=== PATIENT | male | born 1935 ===

== ENCOUNTER 2017-06-20 16:27 | Inpatient (IN) | payer MEDICARE, BC, OTHER ==
[2017-06-20] MEDS ORDERED: Morphine INJ* 2 MG/ML 1 ML SYRINGE IV PRN (18:38)
[2017-06-20] MEDS ORDERED: Acetaminophen TAB* 325 MG PO PRN (18:38)
[2017-06-20] MEDS ORDERED: NS 0.9% 1000 ML* 1,000 ML IV SCH (19:45)
[2017-06-20] MEDS ORDERED: Ondansetron INJ* 2 MG/ML VIAL IV PRN (19:50)
[2017-06-20] MEDS: metroNIDAZOLE IV 500 MG/100ML* 500 MG/100 ML BAG IVPB SCH (21:29)
[2017-06-20] MEDS: Terazosin CAP* 5 MG PO SCH (21:32)
[2017-06-20] MEDS: Atorvastatin* 10 MG TAB PO SCH (21:32)
[2017-06-20] MEDS: Atenolol TAB* 25 MG PO SCH (21:32)
[2017-06-20] MEDS: PTO: Brimonidine/Timolol 0.2%/0.5% OPTH(NF) SOL 5 ML LEFT EYE SCH (21:33)
[2017-06-20] MEDS: PTO: Brinzolamide 1% OPHTH SOL(NF) BTL LEFT EYE SCH (21:33)
[2017-06-20] MEDS: Latanoprost 0.005%* 2.5 ml BTL BOTH EYES SCH (21:33)
[2017-06-20] MEDS ORDERED: Heparin VIAL(*) 5000 UNITS/ML VIAL (FIVE THOUSAND) SUBCUT SCH (22:00)
--- NOTE | 2017-06-20 22:22 | HP ---
CC: Dr. Carrillo * [facility] MEDICINE HISTORY AND PHYSICAL: DATE OF ADMISSION: 06/20/17 PRIMARY CARE PHYSICIAN: Dr. Carrillo. ATTENDING PHYSICIAN: Dr. Miguel Cullen * (dictation provided by Cheryl Nelson NP). CHIEF COMPLAINT: Sigmoid diverticulosis with abscess. HISTORY OF PRESENT ILLNESS: Mr. Le is an 82-year-old male with a past medical history of a lower GI bleed related to a bleeding polyp in 2005 as well as glaucoma, hypertension, and dyslipidemia, who presents to the hospital today with concern for a newly discovered 7.6-cm pelvic abscess along the sigmoid colon. Mr. Le states he was feeling well up until early last week, when he developed dark stool. He had no nausea, no vomiting, no abdominal pain. He was tolerating oral intake well. By yesterday, he developed diarrhea and had several loose stools early in the day. For that reason his convinced him to be evaluated at [facility]. He was admitted and ultimately went on for a CT scan first without and then with contrast of the abdomen and pelvis, which confirmed that there was a 7.6-cm abscess along the sigmoid colon associated with severe diverticulosis. The patient was anemic with hemoglobin 8.9, hematocrit 27, I do not have a prior baseline. He also has an elevated BUN of 33 and a creatinine of 2.1, although I do not have a baseline. Based on the discovery of this abscess, he was sent over to [facility] for surgical consultation and possible Interventional Radiology procedure for abscess drainage. PAST MEDICAL HISTORY: 1. History of GI bleed, 2005, with a bleeding polyp removed by Dr. Gr. 2. History of dyslipidemia. 3. Hypertension. 4. Benign prostatic hypertrophy. 5. Glaucoma. 6. Tonsillectomy. 7. Right inguinal hernia repair. MEDICATIONS: 1. Aspirin 81 mg p.o. daily. 2. Atenolol/chlorthalidone 50/25 one tab p.o. b.i.d. 3. Cinnamon 1 tab p.o. b.i.d. 4. Batson-3 fatty acid 1000 mg p.o. t.i.d. 5. Brimonidine/timolol 1 drop left eye b.i.d. 6. Brinzolamide 1 drop left eye b.i.d., that is 1%. 7. Finasteride 5 mg p.o. daily. 8. Latanoprost 0.005% one drop both eyes at bedtime. 9. Multivitamin and mineral 1 tab p.o. daily. 10. Simvastatin 20 mg p.o. daily. 11. Terazosin 5 mg p.o. b.i.d. 12. Timolol 0.5% 1 drop right eye daily. ALLERGIES: To AMLODIPINE, LISINOPRIL, and PEANUT. FAMILY HISTORY: The patient states that his mom at age 93 from old age, father at 32 in [place] War [place]. SOCIAL HISTORY: The patient is a former smoker, quit in 2001, denies any alcohol use. He lives alone. States that his son, Jonnathan, and his daughter-in- law, Jessica, would be the healthcare proxies. REVIEW OF SYSTEMS: A 14-point review of systems was completed with Mr. Le , and all those not mentioned above were negative. PHYSICAL EXAMINATION GENERAL: Mr. Le was sitting up in the bed. He is in no acute distress. VITAL SIGNS: Temperature 98.5, pulse rate 48, respiratory rate 14, O2 saturation 100% on room air, blood pressure 131/49. LUNGS: Clear to auscultation bilaterally with no accessory muscle use and good aeration. HEART: S1, S2. No murmur, rub, or gallop, and regular. ABDOMEN: Soft, nontender with bowel sounds positive x4. EXTREMITIES: No cyanosis or edema. NEURO: He is alert. He is oriented x3. He moves all extremities equally. There is no facial asymmetry or focal weakness. Extraocular movements are intact. SKIN: Intact. DIAGNOSTIC STUDIES/LAB DATA: Sodium 135, potassium 5.0, chloride 104, serum bicarbonate 23, BUN 33, creatinine 2.1, glucode 96. WBC 6.3, hemoglobin 8.9, hematocrit 27, platelet count 191. The CT abdomen and pelvis shows severe diverticulosis of the sigmoid colon with 7.6- cm abscess. ASSESSMENT AND PLAN: Mr. Le is an 82-year-old male with a past medical history of bleeding polyp, which was removed by Dr. Simón kaplan in 2005 as well as glaucoma, hypertension, dyslipidemia, who presents to the hospital today with concern for dark, tarry stools at home and now transferred from [place] for a finding of sigmoid abscess. Our plans for admission to the hospital for the followin. Sigmoid abscess: I have reviewed the case with Dr. Wolff over the phone and someone from his team will be consulting on the patient tomorrow. In the meantime, the patient will be on Cipro and Flagyl for antibiotic coverage. We will likely need to speak with Interventional Radiology tomorrow regarding possible procedure for drainage. 2. Hypertension: Plan to continue atenolol, but we will hold the chlorthalidone during acute illness and in the setting of a possible acute kidney injury. 3. Lower gastrointestinal bleed: The patient appears quite stable, his hemoglobin is 8.9, hematocrit is 27, I do not have a prior one on file to compare with. He has only had minimal dark stool, plan to recheck all his labs again in the morning. 4. Question of kidney disease: The patient has elevated BUN and creatinine. Again, I do not have a baseline, but we will hydrate and recheck labs in the morning. 5. Glaucoma: Continue home medications. 6. Dyslipidemia: Continue simvastatin. 7. Benign prostatic hypertrophy: Continue home medications. 8. DVT prophylaxis: With SCDs only in this patient with concern for gastrointestinal bleeding. 9. Code status: Full code. TIME SPENT: Approximately 60 minutes was spent on the admission of this patient , more than half the time was spent with the patient at bedside, reviewing the events leading up to this hospitalization, performing the physical examination, and reviewing my plan of care. CHERYL NELSON NP [id number]/[facility] #: [id number] BERNARDA
[2017-06-20] MEDS: Ciprofloxacin 400MG IVPREMIX(* 400 MG/200 ML BAG IVPB SCH (22:53)
[2017-06-21] MEDS: metroNIDAZOLE IV 500 MG/100ML* 500 MG/100 ML BAG IVPB SCH ×3 (04:41→23:10)
[2017-06-21 05:25] LABS: Hematocrit 25 % (42-52); Hemoglobin 8.1 g/dl (14.0-18.0); Mean Corpuscular HGB Conc 33 g/dl (31-36); Mean Corpuscular Hemoglobin 28 pg (27-31); Mean Corpuscular Volume 84 fL (80-94); Mean Platelet Volume 7 um3 (7.4-10.4); Red Blood Count 2.95 10^6/ul (4.0-5.4); Red Cell Distribution Width 15 % (10.5-15)
[2017-06-21 05:44] LABS: BUN/Creatinine Ratio 14.2 (8-20); Calcium 8.7 mg/dL (8.6-10.3); EGFR African American 55.8 (>60); EGFR Non-African American 43.4 (>60); Potassium 4.1 mmol/L (3.5-5.0)
[2017-06-21] MEDS: Multivitamins/Minerals TAB PO SCH (08:08)
[2017-06-21] MEDS: Atenolol TAB* 25 MG PO SCH ×2 (08:08→21:43)
[2017-06-21] MEDS: Finasteride TAB* 5 MG PO SCH (08:08)
[2017-06-21] MEDS: Terazosin CAP* 5 MG PO SCH ×2 (08:08→21:43)
[2017-06-21] MEDS: PTO: Brinzolamide 1% OPHTH SOL(NF) BTL LEFT EYE SCH ×2 (08:09→21:46)
[2017-06-21] MEDS: Timolol 0.5% OPTH.SOL* BTL RIGHT EYE SCH (08:09)
[2017-06-21] MEDS: PTO: Brimonidine/Timolol 0.2%/0.5% OPTH(NF) SOL 5 ML LEFT EYE SCH ×2 (08:09→21:46)
[2017-06-21] MEDS ORDERED: Atenolol TAB* 25 MG PO SCH (09:00)
[2017-06-21] MEDS: Ciprofloxacin 400MG IVPREMIX(* 400 MG/200 ML BAG IVPB SCH ×2 (09:53→21:47)
[2017-06-21] MEDS: NS 0.9% 1000 ML* 1,000 ML IV SCH ×2 (09:55→18:09)
--- NOTE | 2017-06-21 11:25 | PN ---
Subjective Date of Service: 06/21/17 Interval History: No pain. He states he had 3 small BM's 06/19, none on 06/20, and 2 small BM's so far today. They are liquid and black. He did his usual 50 pushups at 45 degrees this AM without any difficulty. No dizziness or SOB. Objective Active Medications: Acetaminophen (Tylenol Tab*) 650 mg PO Q4H PRN PRN Reason: FEVER/PAIN Atenolol (Tenormin Tab*) 25 mg PO BID [facility] Last Admin: 06/21/17 08:08 Dose: 25 mg Atorvastatin Calcium (Lipitor*) 10 mg PO BEDTIME [facility] Last Admin: 06/20/17 21:32 Dose: 10 mg Brimonidine/Timolol (Combigan Ophth (Nf)) 1 drop LEFT EYE BID [facility] Last Admin: 06/21/17 08:09 Dose: 1 drop Brinzolamide (Azopt 1% Ophth Jacqueline(Nf)) 1 drop LEFT EYE BID [facility] Last Admin: 06/21/17 08:09 Dose: 1 drop Finasteride (Proscar Tab*) 5 mg PO DAILY [facility] Last Admin: 06/21/17 08:08 Dose: 5 mg Ciprofloxacin/Dextrose (Cipro 400 Mg Ivpremix(*)) 400 mg in 200 mls @ 200 mls/ hr IVPB Q12H [facility] Last Admin: 06/21/17 09:53 Dose: 200 mls/hr Metronidazole/Sodium Chloride (Flagyl 500 Mg Ivpb*) 500 mg in 100 mls @ 100 mls /hr IVPB Q8H [facility] Last Admin: 06/21/17 04:41 Dose: 100 mls/hr Sodium Chloride (Ns 0.9% 1000 Ml*) 1,000 mls @ 40 mls/hr IV PER RATE [facility] Last Admin: 06/21/17 09:55 Dose: 40 mls/hr Latanoprost (Xalatan 0.005%*) 1 drop BOTH EYES BEDTIME [facility] Last Admin: 06/20/17 21:33 Dose: 1 drop Multivitamins/Minerals (Theragran/Minerals Tab*) 1 tab PO DAILY [facility] Last Admin: 06/21/17 08:08 Dose: 1 tab Ondansetron HCl (Zofran Inj*) 4 mg IV Q6H PRN PRN Reason: NAUSEA Terazosin HCl (Hytrin Cap*) 5 mg PO BID [facility] Last Admin: 06/21/17 08:08 Dose: 5 mg Timolol Maleate (Timoptic 0.5% Opth*) 1 drop RIGHT EYE DAILY [facility] Last Admin: 06/21/17 08:09 Dose: 1 drop Vital Signs 06/20/17 06/20/17 06/20/17 18:29 19:49 23:35 Temperature 98.5 F 98.0 F 97.7 F Pulse Rate 48 50 55 Respiratory 14 18 16 Rate Blood Pressure 131/49 121/47 107/48 (mmHg) O2 Sat by Pulse 100 100 99 Oximetry 06/21/17 06/21/17 06/21/17 03:46 07:32 07:34 Temperature 97.6 F 97.8 F Pulse Rate 57 52 Respiratory 16 18 18 Rate Blood Pressure 117/52 136/56 (mmHg) O2 Sat by Pulse 99 100 Oximetry Oxygen Devices in Use Now: None Appearance: Alert, sitting up in bed. In good spirits. Looks comfortable. Neck: NL Appearance and Movements; NL JVP, No Thyroid Enlargement, Masses Respiratory: Symmetrical Chest Expansion and Respiratory Effort, Clear to Auscultation, Clear to Percussion Abdominal: NL Sounds; No Tenderness; No Distention, No Hepatosplenomegaly, - Extremities: No Edema, No Clubbing, Cyanosis, - Skin: No Rash or Ulcers, No Nodules or Sclerosis, - Neurological: Alert and Oriented x 3, NL Sensation Result Diagrams: 06/21/17 05:12 06/21/17 05:12 Assess/Plan/Problems-Billing Assessment: - Patient Problems (1) Abscess of sigmoid colon Current Visit: Yes Status: Acute Code(s): K63.0 - ABSCESS OF INTESTINE SNOMED Code(s): 793597585 Comment: No hx suggestive of recent diverticulitis. He had a colonoscopy in 04/2016. CT guided drainage requested. Dr. Bustos will review data and get back to me. (2) HTN (hypertension) Current Visit: Yes Status: Acute Code(s): I10 - ESSENTIAL (PRIMARY) HYPERTENSION SNOMED Code(s): 27217156 Comment: Continue terazosin. (3) Hyperlipidemia Current Visit: Yes Status: Acute Code(s): E78.5 - HYPERLIPIDEMIA, UNSPECIFIED SNOMED Code(s): 56191193 Comment: Sub atorvastatin for simvastatin. (4) Glaucoma Current Visit: Yes Status: Acute Code(s): H40.9 - UNSPECIFIED GLAUCOMA SNOMED Code(s): 21786615 Comment: His 3 home eye drops are continued. (5) BPH (benign prostatic hyperplasia) Current Visit: Yes Status: Acute Code(s): N40.0 - BENIGN PROSTATIC HYPERPLASIA WITHOUT LOWER URINRY TRACT SYMP SNOMED Code(s): 882912582 Comment: Continue finasteride, terazosin.
[2017-06-21] MEDS: Atorvastatin* 10 MG TAB PO SCH (21:43)
[2017-06-21] MEDS: Latanoprost 0.005%* 2.5 ml BTL BOTH EYES SCH (21:47)
[2017-06-22 05:35] LABS: Hematocrit 23 % (42-52); Hemoglobin 7.7 g/dl (14.0-18.0); Mean Corpuscular HGB Conc 33 g/dl (31-36); Mean Corpuscular Hemoglobin 28 pg (27-31); Mean Corpuscular Volume 84 fL (80-94); Mean Platelet Volume 7 um3 (7.4-10.4); Red Blood Count 2.78 10^6/ul (4.0-5.4); Red Cell Distribution Width 15 % (10.5-15); White Blood Count 3.6 10^3/ul (3.5-10.8)
[2017-06-22] MEDS: metroNIDAZOLE IV 500 MG/100ML* 500 MG/100 ML BAG IVPB SCH ×3 (05:39→21:27)
[2017-06-22 06:02] LABS: Ferritin 69.6 ng/mL (24-336)
[2017-06-22] MEDS ORDERED: Iodixanol* (CONTRAST) 320 MG/ML 100 ML SDV IV ONE (10:29)
--- NOTE | 2017-06-22 11:06 | RAD ---
INDICATION: Sigmoid abscess. COMPARISON: Comparison is made with a prior outside CT of the abdomen and pelvis from June 20, 2017. TECHNIQUE: Contiguous axial sections were obtained through the pelvis with intravenous and rectal contrast. The exam was performed following intravenous injection of 100 ml of Visipaque 320. Images were reconstructed in the coronal and sagittal planes. FINDINGS: The visualized portion of the small bowel and colon appear nondistended. There is moderate sigmoid diverticulosis. There is focal wall thickening present in the midportion of the sigmoid colon. There is an air-fluid collection present along the anterior margin of the sigmoid colon measuring 4.0 x 2.1 cm in size. There is adjacent stranding in the surrounding mesenteric fat. These findings are most consistent with sigmoid diverticulitis with a peridiverticular abscess. No free intraperitoneal air or fluid is seen. No significant enlarged pelvic or inguinal lymph nodes are seen. There is cortical thickening and increased lucency present throughout the left hemipelvis suggestive of Paget's disease less likely metastatic disease. Recommend clinical correlation. IMPRESSION: 1. SIGMOID DIVERTICULITIS WITH A PERIDIVERTICULAR ABSCESSES DESCRIBED. 2. 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 RECOMMEND CLINICAL CORRELATION.
[2017-06-22] MEDS: PTO: Brinzolamide 1% OPHTH SOL(NF) BTL LEFT EYE SCH ×2 (11:31→21:25)
[2017-06-22] MEDS: Timolol 0.5% OPTH.SOL* BTL RIGHT EYE SCH (11:32)
[2017-06-22] MEDS: Ciprofloxacin 400MG IVPREMIX(* 400 MG/200 ML BAG IVPB SCH ×2 (11:35→22:35)
[2017-06-22] MEDS: PTO: Brimonidine/Timolol 0.2%/0.5% OPTH(NF) SOL 5 ML LEFT EYE SCH ×2 (11:36→21:24)
[2017-06-22] MEDS: Multivitamins/Minerals TAB PO SCH (11:39)
[2017-06-22] MEDS: Atenolol TAB* 25 MG PO SCH ×2 (11:39→21:29)
[2017-06-22] MEDS: Finasteride TAB* 5 MG PO SCH (11:39)
[2017-06-22] MEDS: Terazosin CAP* 5 MG PO SCH ×2 (11:39→21:29)
--- NOTE | 2017-06-22 15:05 | PN ---
Subjective Date of Service: 06/22/17 Interval History: Small amounts of black stool every day or so. No pain, no F/C. Good appetite. No new c/o. Objective Active Medications: Acetaminophen (Tylenol Tab*) 650 mg PO Q4H PRN PRN Reason: FEVER/PAIN Atenolol (Tenormin Tab*) 25 mg PO BID [facility] Last Admin: 06/22/17 11:39 Dose: 25 mg Atorvastatin Calcium (Lipitor*) 10 mg PO BEDTIME [facility] Last Admin: 06/21/17 21:43 Dose: 10 mg Brimonidine/Timolol (Combigan Ophth (Nf)) 1 drop LEFT EYE BID [facility] Last Admin: 06/22/17 11:36 Dose: 1 drop Brinzolamide (Azopt 1% Ophth Jacqueline(Nf)) 1 drop LEFT EYE BID [facility] Last Admin: 06/22/17 11:31 Dose: 1 drop Finasteride (Proscar Tab*) 5 mg PO DAILY [facility] Last Admin: 06/22/17 11:39 Dose: 5 mg Ciprofloxacin/Dextrose (Cipro 400 Mg Ivpremix(*)) 400 mg in 200 mls @ 200 mls/ hr IVPB Q12H [facility] Last Admin: 06/22/17 11:35 Dose: 200 mls/hr Metronidazole/Sodium Chloride (Flagyl 500 Mg Ivpb*) 500 mg in 100 mls @ 100 mls /hr IVPB Q8H [facility] Last Admin: 06/22/17 13:40 Dose: 100 mls/hr Sodium Chloride (Ns 0.9% 1000 Ml*) 1,000 mls @ 40 mls/hr IV PER RATE [facility] Last Admin: 06/21/17 18:09 Dose: 40 mls/hr Latanoprost (Xalatan 0.005%*) 1 drop BOTH EYES BEDTIME [facility] Last Admin: 06/21/17 21:47 Dose: 1 drop Multivitamins/Minerals (Theragran/Minerals Tab*) 1 tab PO DAILY [facility] Last Admin: 06/22/17 11:39 Dose: 1 tab Ondansetron HCl (Zofran Inj*) 4 mg IV Q6H PRN PRN Reason: NAUSEA Terazosin HCl (Hytrin Cap*) 5 mg PO BID [facility] Last Admin: 06/22/17 11:39 Dose: 5 mg Timolol Maleate (Timoptic 0.5% Opth*) 1 drop RIGHT EYE DAILY [facility] Last Admin: 06/22/17 11:32 Dose: 1 drop Vital Signs 06/21/17 06/21/17 06/21/17 15:57 20:00 20:13 Temperature 98.0 F 98.0 F Pulse Rate 57 62 Respiratory 22 20 23 Rate Blood Pressure 131/58 129/64 (mmHg) O2 Sat by Pulse 99 99 Oximetry 06/21/17 06/22/17 06/22/17 23:34 03:36 08:00 Temperature 97.4 F 97.5 F Pulse Rate 57 60 Respiratory 16 16 16 Rate Blood Pressure 119/59 124/64 (mmHg) O2 Sat by Pulse 99 99 Oximetry 06/22/17 11:16 Temperature 97.5 F Pulse Rate 51 Respiratory 20 Rate Blood Pressure 123/56 (mmHg) O2 Sat by Pulse 100 Oximetry Oxygen Devices in Use Now: None Appearance: Alert, sitting on the edge of his bed. In good spirits. Looks comfortable. Eyes: No Scleral Icterus Ears/Nose/Mouth/Throat: Clear Oropharnyx, Mucous Membranes Moist Neck: NL Appearance and Movements; NL JVP, No Thyroid Enlargement, Masses Cardiovascular: - Abdominal: NL Sounds; No Tenderness; No Distention, No Hepatosplenomegaly, - Extremities: No Edema, No Clubbing, Cyanosis, - Skin: No Rash or Ulcers, No Nodules or Sclerosis, - Neurological: Alert and Oriented x 3, NL Sensation Result Diagrams: 06/22/17 05:07 06/21/17 05:12 Assess/Plan/Problems-Billing Assessment: - Patient Problems (1) Abscess of sigmoid colon Current Visit: Yes Status: Acute Code(s): K63.0 - ABSCESS OF INTESTINE SNOMED Code(s): 298936607 Comment: No hx suggestive of recent diverticulitis. He had a colonoscopy in 04/2016. CT guided drainage requested. Discussed with Dr. Redding- no drainable abaces, has phlegmon in the wall of the colon. I spoke briefly with Dr. Alford also. I plan on giving 1 more day of IV antibiotics then d/c on oral antibiotic with fup CT w/rectal contrast in 2 weeks. Transfuse 1 U PRBC 06/22, BMP and CBC 06/23. (2) HTN (hypertension) Current Visit: Yes Status: Acute Code(s): I10 - ESSENTIAL (PRIMARY) HYPERTENSION SNOMED Code(s): 40075821 Comment: Continue terazosin. (3) Hyperlipidemia Current Visit: Yes Status: Acute Code(s): E78.5 - HYPERLIPIDEMIA, UNSPECIFIED SNOMED Code(s): 00457302 Comment: Sub atorvastatin for simvastatin. (4) Glaucoma Current Visit: Yes Status: Acute Code(s): H40.9 - UNSPECIFIED GLAUCOMA SNOMED Code(s): 25386789 Comment: His 3 home eye drops are continued. (5) BPH (benign prostatic hyperplasia) Current Visit: Yes Status: Acute Code(s): N40.0 - BENIGN PROSTATIC HYPERPLASIA WITHOUT LOWER URINRY TRACT SYMP SNOMED Code(s): 164769771 Comment: Continue finasteride, terazosin.
[2017-06-22 15:42] LABS: C Reactive Protein 13.57 mg/L (< 5.00)
[2017-06-22] MEDS: Latanoprost 0.005%* 2.5 ml BTL BOTH EYES SCH (21:23)
[2017-06-22] MEDS: Atorvastatin* 10 MG TAB PO SCH (21:29)
[2017-06-23] MEDS: NS 0.9% 1000 ML* 1,000 ML IV SCH (04:15)
[2017-06-23] MEDS: metroNIDAZOLE IV 500 MG/100ML* 500 MG/100 ML BAG IVPB SCH (05:10)
[2017-06-23 06:41] LABS: Hematocrit 24 % (42-52); Mean Corpuscular HGB Conc 33 g/dl (31-36); Mean Corpuscular Hemoglobin 28 pg (27-31); Mean Corpuscular Volume 83 fL (80-94); Mean Platelet Volume 7 um3 (7.4-10.4); Red Cell Distribution Width 15 % (10.5-15)
[2017-06-23 06:56] LABS: BUN/Creatinine Ratio 10.3 (8-20); Calcium 8.1 mg/dL (8.6-10.3); EGFR African American 55.3 (>60); Potassium 3.9 mmol/L (3.5-5.0)
[2017-06-23] MEDS: Multivitamins/Minerals TAB PO SCH (08:15)
[2017-06-23] MEDS: Atenolol TAB* 25 MG PO SCH (08:15)
[2017-06-23] MEDS: Finasteride TAB* 5 MG PO SCH (08:15)
[2017-06-23] MEDS: Ciprofloxacin 400MG IVPREMIX(* 400 MG/200 ML BAG IVPB SCH (08:15)
[2017-06-23] MEDS: Terazosin CAP* 5 MG PO SCH (08:15)
[2017-06-23] MEDS: PTO: Brinzolamide 1% OPHTH SOL(NF) BTL LEFT EYE SCH (08:16)
[2017-06-23] MEDS: Timolol 0.5% OPTH.SOL* BTL RIGHT EYE SCH (08:16)
[2017-06-23] MEDS: PTO: Brimonidine/Timolol 0.2%/0.5% OPTH(NF) SOL 5 ML LEFT EYE SCH (08:16)
[2017-06-23 09:02] VITALS: BP 125/61
--- NOTE | 2017-06-23 15:28 | PN ---
Progress Note - Progress Note Date of Service: 06/23/17 Note: Time spent on discharge 45 minutes.
--- NOTE | 2017-06-25 23:43 | DS ---
CC: Daphne Loredo DISCHARGE SUMMARY: DATE OF ADMISSION: DATE OF DISCHARGE: 06/23/17 HISTORY: This 82-year-old male presented to [facility] Emergency Room with some blackish liq uid stool. He had minimal, if any, pain. CT scan there suggested a rectal abscess. He was transfe rred here. He had a CT scan of the pelvis with rectal contrast. It was felt he had a phlegmon of t he sigmoid colon wall that was not drainable, but should be treatable with antibiotics. The patient received 1 unit of packed cells while he was here. He stopped having bleeding. He felt quite well. He was afebrile through his hospital stay. No material was sent for culture. The patient was treated with intravenous ciprofloxacin and metronidazole, which he tolerated well. I did consult with Dr. Alford on the phone. My plan on discharge was 14 days of oral ciprofloxaci n and metronidazole with a followup CT scan with rectal contrast in 2 weeks. The order was entered and the patient was instructed. The CT scan was scheduled for the patient. He was also given a sli p for CBC on 06/27/17. FINAL DIAGNOSES: 1. Phlegmon of sigmoid colon, likely due to diverticulitis. 2. Hypertension. 3. Hyperlipidemia. 4. Glaucoma. 5. Benign prostatic hypertrophy. DISCHARGE MEDICATIONS: 1. Acetaminophen 650 mg every 4 hours p.r.n. 2. Ciprofloxacin 500 mg b.i.d. for 14 days. 3. Metronidazole 500 mg t.i.d. for 14 days. 4. Multivitamin with mineral daily. 5. Cinnamon extract 1 tab b.i.d. 6. Terazosin 5 mg b.i.d. 7. Atenolol/chlorthalidone 50/25 one b.i.d. 8. Aspirin 81 mg daily. 9. Latanoprost 1 drop both eyes at bedtime. 10. Finasteride 5 mg daily. 11. Brimonidine/timolol 1 drop left eye b.i.d. 12. Simvastatin 20 mg daily. 13. Grundy-3 fatty acids 1000 mg t.i.d. 14. Timolol 0.5% 1 drop right eye daily. 15. Brinzolamide 1% one drop left eye b.i.d. [id number]/[facility] #: [id number]
== END 2017-06-23 12:35 | disposition home or self-care (01) | DRG 378 ==
LOC: MED 18:07 → OBSVTOIN 21:00 → MED 21:00
PROVIDERS: ADMIT Internal Medicine; ATTEND Internal Medicine
PROC: 30233N1 Transfusion of Nonautologous Red Blood Cells into Peripheral Vein, Percutaneous Approach (ICD-10-PCS; principal; 2017-06-22)
DX: K57.21 Diverticulitis of large intestine with perforation and abscess with bleeding (principal); D64.9 Anemia, unspecified; I10 Essential (primary) hypertension; E78.5 Hyperlipidemia, unspecified; N40.0 Benign prostatic hyperplasia without lower urinary tract symptoms; H40.9 Unspecified glaucoma; Z79.82 Long term (current) use of aspirin; Z88.8 Allergy status to other drugs, medicaments and biological substances; Z91.010 Allergy to peanuts; Z87.891 Personal history of nicotine dependence
CPT/HCPCS: 36415; 72193; 80048; 82728; 83540; 83550; 85025; 85610; 86140; 86850; 86900; 86901; 86922; A9270-GY; J0744; P9040